=== PATIENT | female | born 1940 | race Caucasian/White ===

== ENCOUNTER → 2017-10-19 | Outpatient (CLI) | payer MEDICARE, BC | LOC: MAMMO 12:46 | DX: Z12.31 Encounter for screening mammogram for malignant neoplasm of breast (principal) ==

== ENCOUNTER → 2017-10-19 | Outpatient (CLI) | payer MEDICARE, BC | LOC: RAD 12:47 → MAMMO 13:45 | DX: Z13.820 Encounter for screening for osteoporosis (principal); M85.88 Other specified disorders of bone density and structure, other site ==

== ENCOUNTER → 2020-07-08 | Outpatient (CLI) | payer MEDICARE, BC | LOC: MAMMO 10:45 | DX: Z12.31 Encounter for screening mammogram for malignant neoplasm of breast (principal) ==

== ENCOUNTER → 2020-07-08 | Outpatient (CLI) | payer MEDICARE, BC | LOC: RAD 12:49 → MAMMO 13:45 | DX: Z13.820 Encounter for screening for osteoporosis (principal) ==

== ENCOUNTER → 2020-11-12 | Outpatient (CLI) | payer MEDICARE, BC | LOC: VAS 10:47 → RAD 13:00 | DX: R06.00 Dyspnea, unspecified (principal) ==

== ENCOUNTER 2021-10-12 09:44 | Outpatient (RCR) | payer MEDICARE, BC | END 2021-10-29 | disposition home or self-care (01) | LOC: PT | DX: M70.61 Trochanteric bursitis, right hip (principal) ==

== ENCOUNTER 2021-11-05 12:59 | Outpatient (RCR) | payer MEDICARE, BC | END 2021-11-27 07:39 | disposition still patient (30) | LOC: PT 12:59 | DX: M70.61 Trochanteric bursitis, right hip (principal) ==

== ENCOUNTER → 2022-04-06 | Outpatient (CLI) | payer MEDICARE, BC | LOC: RAD 03-23 14:48 | DX: M47.816 Spondylosis without myelopathy or radiculopathy, lumbar region (principal); M47.817 Spondylosis without myelopathy or radiculopathy, lumbosacral region; M51.26 Other intervertebral disc displacement, lumbar region; M51.27 Other intervertebral disc displacement, lumbosacral region; M48.061 Spinal stenosis, lumbar region without neurogenic claudication; M48.07 Spinal stenosis, lumbosacral region ==

== ENCOUNTER → 2023-09-29 | Outpatient (CLI) | payer MEDICARE, BC | LOC: MAMMO 09:36 | DX: Z12.31 Encounter for screening mammogram for malignant neoplasm of breast (principal) ==